=== PATIENT | male | born 1970 | race Caucasian/White ===

== ENCOUNTER 2017-04-09 11:13 | Inpatient (IN) | payer MEDICARE, OTHER ==
[~2017-04-09] VITALS: Ht 193 cm; Wt 75.9 kg
[2017-04-09 17:16] LABS: HEMOGLOBIN 14.3 gm/dl (14.0-17.5); RED BLOOD COUNT 4.69 M/UL (4.20-5.50); WHITE BLOOD COUNT 6.5 K/UL (4.5-11.0)
[2017-04-09 17:44] LABS: BUN/CREATININE RATIO 20 (0-10)
[2017-04-10 03:31] LABS: HEMOGLOBIN 14.3 gm/dl (14.0-17.5); RED BLOOD COUNT 4.69 M/UL (4.20-5.50); WHITE BLOOD COUNT 7.5 K/UL (4.5-11.0)
[2017-04-10 03:47] LABS: BUN/CREATININE RATIO 19 (0-10)
--- NOTE | 2017-04-10 15:41 | NUR ---
04/10/17 11:30 DR. GONZALES HERE. SPEAKING TO PT AND HIS FATHER ABOUT THE CARDIAC CATH BEING SCHEDULED FOR . 1220 PERMIT SIGNED BY FATHER AFTER READING IT AND DENYING ANY FURTHER QUESTIONS. PERMIT ON CHART
[2017-04-11 07:10] LABS: HEMOGLOBIN 13.9 gm/dl (14.0-17.5); RED BLOOD COUNT 4.61 M/UL (4.20-5.50); WHITE BLOOD COUNT 7.2 K/UL (4.5-11.0)
[2017-04-11 07:46] LABS: BUN/CREATININE RATIO 19 (0-10)
[2017-04-11] MEDS ORDERED: ASPIR 8181 MG PO (17:24)
[2017-04-11] MEDS ORDERED: LIPITOR TAB 2020 MG PO (17:25)
[2017-04-11] MEDS ORDERED: LOPRESSOR 25 MG25 MG PO (17:26)
== END 2017-04-11 16:00 | disposition home or self-care (01) | DRG 286 ==
LOC: PROG CARE 11:13
PROVIDERS: Physician Assistant Medical; ADMIT Internal Medicine Cardiovascular Disease
PROC: 4A023N7 Measurement of Cardiac Sampling and Pressure, Left Heart, Percutaneous Approach (ICD-10-PCS; principal; 2017-04-11)
PROC: B2111ZZ Fluoroscopy of Multiple Coronary Arteries using Low Osmolar Contrast (ICD-10-PCS; 2017-04-11)
DX: R07.9 Chest pain, unspecified (principal); J18.9 Pneumonia, unspecified organism; J44.0 Chronic obstructive pulmonary disease with (acute) lower respiratory infection; J44.1 Chronic obstructive pulmonary disease with (acute) exacerbation; I47.2 Ventricular tachycardia; R74.8 Abnormal levels of other serum enzymes; I25.10 Atherosclerotic heart disease of native coronary artery without angina pectoris; E78.5 Hyperlipidemia, unspecified; F17.200 Nicotine dependence, unspecified, uncomplicated; F70 Mild intellectual disabilities; Z83.3 Family history of diabetes mellitus
CPT/HCPCS: ECHO; 36415; 71010; 80048; 80053; 82550; 82553; 83735; 84439; 84443; 84484; 85025; 85610; 85730; 93005; 93306; C1769; C1887; J0696; J1644; J2250; J3010; J7030; J7050; Q9963